=== PATIENT | female | born 1950 | race Caucasian/White ===

== ENCOUNTER 2019-04-10 22:17 | Emergency (ER) | payer MEDICARE, OTHER ==
[~2019-04-10] VITALS: Ht 170.2 cm; Wt 86.2 kg
--- OUTSIDE RECORDS SUMMARY | 2019-04-10 22:22 | XMS REPORT ---
Author Author [facility] Address Unknown Phone Unavailable Care Team Providers Care Chief Underwriter Name Role Phone SERGIO MASCORRO Unavailable Unavailable Problems This patient has no known problems. Allergies, Adverse Reactions, Alerts This patient has no known allergies or adverse reactions. Medications This patient has no known medications. Results Test Description Test Time Test Comments Text Results Atomic Results Result Comments TISSUE EXAM 2018-11-14 14:54:00 Surgical Pathology Report Case: [id number] Authorizing Provider: Maria Guadalupe Mascorro, Collected: 11/08/2018 1226 MD Ordering Location: [facility] Received: 11/08/2018 1404 SERVICES Pathologist: Octavio Garcia MD Specimen: Condyle,Left Knee PART A LEFT KNEE CONDYLE, ARTHROPLASTY:OSTEOARTHRITIC CHANGES IN BONE AND CARTILAGE.REACTIVE SYNOVIAL TISSUE. Signing Pathologist Direct Phone Line: [phone] signed by Octavio Garcia MD on 11/14/2018 at 2:54 [id number], [id number] total knee arthroplasty, arthroplasty, knee unilateralPreoperative and postoperative diagnosis: Primary osteoarthritis of left knee Condyle, left knee This case was received in one part labeled "condyle left knee" and is an 11.8 x 8.5 x 0.8 cm aggregate of cottrell-white to diaz-yellow bone consisting of the tibial plateau, epicondyles, patella and little attached soft tissue, which measures 2 x 2 x 0.5 cm.Osteophyte formation is identified. Eburnation is identified measuring 0.6 x 0.2 cm. The medullary bone displays no areas of softening.Green Meat Grader sections are submitted following fixation and decalcification in cassettes A1-A2, and the soft tissue is submitted in cassette A3. KM/ew PERFORMED BASIC METABOLIC PANEL 2018-11-09 05:34:00 SODIUM (BEAKER) (test cbik=932) 140 meq/L 136-145 POTASSIUM (BEAKER) (test nibr=510) 4.4 meq/L 3.5-5.1 CHLORIDE (BEAKER) (test fxjr=291) 111 meq/L 98-107 CO2 (BEAKER) (test sghy=772) 23 meq/L 22-29 BLOOD UREA NITROGEN (BEAKER) (test miwk=928) 15 mg/dL 7-21 CREATININE (BEAKER) (test mspj=196) 0.81 mg/dL 0.57-1.25 GLUCOSE RANDOM (BEAKER) (test boqx=802) 117 mg/dL 70-105 CALCIUM (BEAKER) (test eunf=658) 9.0 mg/dL 8.4-10.2 EGFR (BEAKER) (test vnuf=6986) 70 mL/min/1.73 sq m ESTIMATED GFR IS NOT ACCURATE CREATININE CLEARANCE IN PREDICTING GLOMERULAR FILTRATION RATE. ESTIMATED GFR IS NOT APPLICABLE FOR DIALYSIS PATIENTS. HEMOGLOBIN AND [id number] 05:13:00* Test Item Value Reference Range Comments HEMOGLOBIN (BEAKER) (test myje=879) 11.1 GM/DL 11.2-15.7 HEMATOCRIT (BEAKER) (test iqkh=324) 34.4 % 34.1-44.9
[2019-04-10] MEDS ORDERED: BACITRACIN ZINC 0.9GM TP ONE (22:47)
== END 2019-04-10 22:58 | disposition home or self-care (01) ==
LOC: FSED 22:17
DX: T23.112A Burn of first degree of left thumb (nail), initial encounter (principal); T23.102A Burn of first degree of left hand, unspecified site, initial encounter; T31.0 Burns involving less than 10% of body surface; X12.XXXA Contact with other hot fluids, initial encounter; Y92.008 Other place in unspecified non-institutional (private) residence as the place of occurrence of the external cause; F32.9 Major depressive disorder, single episode, unspecified
CPT/HCPCS: 99283

== ENCOUNTER 2024-12-28 11:37 | Emergency (ER) | payer MEDICARE ==
[~2024-12-28] VITALS: Ht 167.6 cm; Wt 93.4 kg
[2024-12-28 11:50] VITALS: PULSE 69; RESP 18; TEMP 97.3; O2SAT 98
[2024-12-28] MEDS ORDERED: MOMETASONE FURO15 G2 TOP (11:58)
== END 2024-12-28 12:10 | disposition home or self-care (01) ==
LOC: FSED 11:50
DX: L25.9 Unspecified contact dermatitis, unspecified cause (principal); L29.9 Pruritus, unspecified; J44.9 Chronic obstructive pulmonary disease, unspecified; M19.09 Primary osteoarthritis, other specified site; F41.9 Anxiety disorder, unspecified; F32.A Depression, unspecified
CPT/HCPCS: 99282